=== PATIENT | female | born 2005 | race Caucasian/White ===

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

== ENCOUNTER → 2025-01-26 | Outpatient (CLI) | payer OTHER ==
--- NOTE | 2025-01-26 11:00 | FL ---
EXAMINATION TYPE: FL UGI air w small bowel DATE OF EXAM: 01/26/2025 COMPARISON: None CLINICAL INDICATION: Female, 19 years old with history of K58.2 MIXED IRRITABLE BOWEL SYNDROME; [facility], TECHNIQUE: A double contrast FL UGI air w small bowel study is performed with small bowel follow thr ough. A total of 2 minutes and 28 seconds of fluoroscopic time was utilized during procedure and 28 images obtained. Total dose area product (DAP) in uGy*m?, mGy*cm? (or similar): Not provided. FINDINGS: [facility] image of the abdomen shows no evidence of obstruction. Large retained stool burden. The esophagus shows normal motility and emptying into the stomach. No evidence of hiatal hernia or s tricture noted. The stomach shows normal distensibility, peristalsis, and mucosal folds. No evidence of any mass or ulcer disease. Mild esophageal reflux was seen during real time performance of this study. The duodenal bulb and sweep are unremarkable. The small bowel study shows normal transit to the colon in less than 90 minutes. There is normal muc osal fold pattern throughout the small bowel. There is no evidence of any stricture or filling defec t noted. The terminal ileum is unremarkable. IMPRESSION: 1. Mild gastroesophageal reflux. 2. Large retained stool burden correlate for constipation. [facility], , 01/26/2025 10:57 AM
== END | disposition home or self-care (01) ==
LOC: RADFLMAIN 08:23
PROVIDERS: ATTEND Internal Medicine Gastroenterology
DX: K21.9 Gastro-esophageal reflux disease without esophagitis (principal); K58.2 Mixed irritable bowel syndrome
CPT/HCPCS: 74240; 74248